=== PATIENT | female | born 1965 | race Caucasian/White ===

== ENCOUNTER 2018-01-12 19:08 | Emergency (ER) | payer MEDICAID, OTHER ==
[~2018-01-12] VITALS: Ht 165.1 cm; Wt 55.4 kg
[2018-01-12 19:11] VITALS: BP 138/78
[2018-01-12] MEDS ORDERED: DEXAMETHASONE 4 MG TABLET PO STA (19:27)
[2018-01-12] MEDS ORDERED: DEXAMETHASONE 4 MG TABLET ONE (19:28)
[2018-01-12] MEDS ORDERED: IBUPROFEN 200 MG TABLET ONE (19:49)
[2018-01-12] MEDS ORDERED: MAALOX/HYOSCYAMINE/LIDOCAINE 45 ML BTL ONE (19:52)
[2018-01-12] MEDS ORDERED: IBUPROFEN 800 MG TABLET PO STA (19:52)
[2018-01-12] MEDS ORDERED: MAALOX/HYOSCYAMINE/LIDOCAINE 45 ML BTL PO ONE (20:00)
== END 2018-01-12 20:16 | disposition home or self-care (01) ==
LOC: ED 19:30
DX: J02.8 Acute pharyngitis due to other specified organisms (principal); J04.0 Acute laryngitis; B97.89 Other viral agents as the cause of diseases classified elsewhere; Z87.891 Personal history of nicotine dependence
CPT/HCPCS: 87081; 87880; 99284